=== PATIENT | female | born 1960 | race Caucasian/White ===

== ENCOUNTER 2024-03-06 18:39 | Emergency (ER) | payer OTHER, SELFPAY ==
[2024-03-06 18:42] VITALS: BP 132/59; PULSE 83; RESP 18; TEMP 36.6; O2SAT 94; BMI 24.5
--- NOTE | 2024-03-06 19:00 | EDS_ITS ---
HPI History of Present Illness Chief Complaint: Cold Sx Detail of Chief Complaint: Fever and chills and shortness of breath Informant: patient Narrative Narrative: Patient presents the emergency department with complaint of not feeling well for at least 5 days. She initially started with some fatigue. Now complaining of some chills and some shortness of breath. She does have history of COPD but does not wear home O2. Also complaining of some left upper back pain. She has had a mild cough. Denies urinary symptoms. She had some mild nausea but no vomiting. 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 [facility] Medical History (Updated 03/06/24 @ 21:[address] Maki Russo, DO) History of deviated nasal septum Hypertension COPD (chronic obstructive pulmonary disease) Home Medications ?Medication ?Instructions ?Recorded ?Last Taken ?Type albuterol sulfate 90 mcg/actuation inhalation 03/06/24 Unknown History aerosol inhaler budesonide-formoterol HFA 160 inhalation 03/06/24 Unknown History mcg-4.5 mcg/actuation aerosol inhaler (Symbicort) citalopram 20 mg tablet 20 mg PO DAILY 03/06/24 Unknown History ferrous sulfate 325 mg (65 mg 18 mg PO DAILY 03/06/24 Unknown History iron) tablet (iron) fluticasone 250 mcg-salmeterol 50 1 ea inhalation BID 03/06/24 Unknown History mcg/dose blistr powdr for inhalation (Wixela Inhub) levofloxacin 750 mg tablet 750 mg PO DAILY #6 tabs 03/06/24 Unknown Rx magnesium glycinate 100 mg (as 500 mg PO QDAY 03/06/24 Unknown History glycinate) tablet (Mag Glycinate) mecobalamin (vitamin B12) 1,000 1,000 mcg PO DAILY 03/06/24 Unknown History mcg lozenges olmesartan 20 mg tablet 5 mg PO DAILY 03/06/24 Unknown History tiotropium bromide 1.25 2 puff inhalation Q24H 03/06/24 Unknown History mcg/actuation mist for inhalation (Spiriva Respimat) Allergy/AdvReac Type Severity Reaction Status Date / Time bacitracin (From Neosporin Allergy Rash Verified 03/06/24 18:41 ([id number])) codeine Allergy Itching Verified 03/06/24 18:41 neomycin (From Neosporin Allergy Rash Verified 03/06/24 18:41 ([id number])) polymyxin B (From Neosporin Allergy Rash Verified 03/06/24 18:41 ([id number])) Surgical History (Updated 03/06/24 @ 19:29 by Zeenat Haywood) Hx of tubal ligation History of carpal tunnel repair Hx of tonsillectomy Social History Smoking Status: Current every day smoker tobacco type: e-cigarettes ROS ROS ED Review of Systems ROS Unobtainable: other Constitutional Constitutional ED: Reports chills, fever(s) and lethargy; Denies sweats or weigh t loss Eyes Eyes: Denies blurry vision, change in vision or diplopia ENT ENT ED: Denies rhinorrhea or sore throat Cardiovascular Cardiovascular: Denies chest pain, orthopnea or racing heartbeat Respiratory/Chest Respiratory/Chest: Reports cough, dyspnea and dyspnea on exertion; Denies orthopnea or sputum Gastrointestinal Gastrointestinal: Denies abdominal pain, diarrhea, nausea or vomiting Genitourinary Genitourinary ED: Denies dysuria, hematuria or urinary frequency Musculoskeletal Musculoskeletal: Reports myalgias; Denies arthralgias, back pain or neck pain Integumentary Denies abscess, Abrasions or rash Neurologic Neurologic: Reports headache(s); Denies weakness Psychiatric Psychiatric: Denies anxiety, depression or suicidal thoughts Endocrine Endocrinology: Denies polydipsia, polyphagia or polyuria Hematologic/Lymphatic Hematologic/Lymphatic: Denies easy bleeding, easy bruising or lymphadenopathy Allergic/Immunologic Allergic/Immunologic ED: Denies mouth swelling, tongue swelling or urticaria EXAM Physical Exam Const Vital Signs: 03/06/24 18:42 03/06/24 19:22 03/06/24 20:40 Temperature 98 F 98.9 F Temperature Source Temporal Oral Pulse Rate 83 64 Respiratory Rate 18 16 Respiratory Effort Normal Non-Labored Respiratory Pattern Normal Blood Pressure 132/59 H 109/65 Blood Pressure Mean 83 79 Pulse Ox 94 92 Oxygen Delivery Method Room Air Room Air Positive well nourished and well developed General Appearance ED: well developed and NAD HEENT Reports TM's clear and moist mucous membranes normocephalic and atraumatic; Negative for trauma or tenderness Tympanic Membrane ED: Yes TM's clear Eyes PERRL and EOMs intact bilaterally General Eye ED: Negative for pale conjunctiva or scleral icterus Neck no lymphadenopathy, supple and no JVD General: Negative for tenderness Chest Wall inspection of chest normal and palpation of chest normal Chest: Negative for tenderness Resp normal respiratory effort and clear to auscultation bilaterally Effort and Inspection: Negative for respiratory distress or pain with movement Auscultation: Negative for rhonchi, wheezes or diminished lung sounds Cardio regular rate, regular rhythm, S1 normal heart sound, S2 normal heart sound and no murmurs Peripheral Pulses: pulses 2+ throughout GI normal to inspection, nondistended, normoactive bowel sounds, soft to palpation, non-tender, non-distended and no masses Back/Spine no CVA tenderness and no thoracic nor lumbar tenderness Extremity normal to inspection General Extremety ED: Negative for edema General Extremity: Negative for edema Neuro oriented x3, CN's II-XII intact bilaterally, no sensory deficits noted and gait normal Sensorium / Orientation: awake, alert, oriented to person, oriented to place and oriented to time Motor Exam: strength 5/5 throughout and strength abnormal Psych mental status grossly normal Skin no rashes or lesions noted and no wounds MDM MDM MDM Narrative Medical decision making narrative: Patient presents with fever and chills and some dyspnea. History of COPD. In the differential would be pneumonia versus viral infection versus UTI or other infectious etiology. Patient had an IV line established. CBC with differential obtained showing a 12.4 with hemoglobin 13 and platelet count of 279. Chemistries unremarkable. Urinalysis was normal. COVID flu and RSV testing was negative. Chest x-ray obtained was read by myself as some chronic interstitial changes. Radiology felt there was interstitial thickening left upper lobe which may represent fibrotic change or atypical infection. Given patient's symptomatology and concerned about infection and then her elevated WBC count. Patient also with history of COPD. Will start on Levaquin and give first dose in the emergency department. Advised return if increasing shortness of breath or condition worsen anyway. Patient advised to follow-up with her primary care physician within next 5 to 7 days. Lab Data Attestation: I reviewed the patient's lab results. Labs: Laboratory Results - last 24 hr 03/06/24 03/06/24 19:05 19:15 WBC 12.4 H RBC 4.76 Hgb 13.1 Hct 41.4 MCV 87.0 MCH 27.5 MCHC 31.6 L RDW Std Deviation 58.2 H RDW Coeff of [place] 18.2 H Plt Count 279 MPV 9.2 Immature Gran % (Auto) 0.300 Neut % (Auto) 71.5 H Lymph % (Auto) 18.2 L [place] % (Auto) 8.3 Eos % (Auto) 1.1 Baso % (Auto) 0.6 Absolute Neuts (auto) 8.9 H Absolute Lymphs (auto) 2.25 Nucleated RBC % 0 Sodium 138 Potassium 3.4 L Chloride 104 Carbon Dioxide 27.0 Anion Gap 7 BUN 7 Creatinine 0.76 Estim Creat Clear Calc 62.41 Est GFR (MDRD) Af Amer 98 Est GFR (MDRD) Non-Af 81 BUN/Creatinine Ratio 9.2 L Glucose 121 H Calcium 9.0 Urine Color Yellow Urine Clarity Clear Urine pH 7.0 Ur Specific [place] 1.010 Urine Protein 15 H Urine Glucose (UA) Normal Urine Ketones Negative Urine Occult Blood Negative Urine Nitrite Negative Urine Bilirubin Negative Urine Urobilinogen Normal Ur Leukocyte Esterase Negative Urine RBC 0 SEEN Urine WBC 0 SEEN Ur Squamous Epith Cells 0 SEEN Urine Bacteria 0 SEEN Urine Mucus 0 SEEN Radiography Diagnostic Testing: Clinical Impression(s) from Imaging Studies Chest X-Ray 03/06/24 19:50 IMPRESSION: 1. Interstitial thickening involving left upper lobe. This may represent fibrotic change or atypical infection. Correlate clinically. 2. Old granulomatous disease. Electronically Signed: Kirk Watkins MD at 21:14 EDT , Discharge Plan Triage Chief Complaint: Cold Sx ED Provider: Maki Russo Dx/Rx/DC Orders Clinical Impression: Pneumonia Instructions: ED Pneumonia (Adult) Prescriptions: New levofloxacin 750 mg tablet 750 mg PO DAILY Qty: 6 0RF No Action olmesartan 20 mg tablet 5 mg PO DAILY citalopram 20 mg tablet 20 mg PO DAILY ferrous sulfate [iron] 325 mg (65 mg iron) tablet 18 mg PO DAILY mecobalamin (vitamin B12) 1,000 mcg lozenge 1,000 mcg PO DAILY Rx Instructions: allow to dissolve in mouth OR may chew lightly before swallowing Mag Glycinate 100 mg tablet 500 mg PO QDAY Spiriva Respimat 1.25 mcg/actuation mist 2 puff INHALATION Q24H fluticasone propion-salmeterol [Wixela Inhub] 250-50 mcg/dose blister with device 1 ea inhalation BID albuterol sulfate 90 mcg/actuation HFA aerosol inhaler inhalation budesonide-formoterol [Symbicort] 160-4.5 mcg/actuation HFA aerosol inhaler inhalation Primary Care Provider: WAYNE NAVARRO Referrals: WAYNE NAVARRO [Other] Activity Restrictions/Additional Instructions: Follow-up with your primary care physician within next 5 to 7 days. Print Language: [place] Island[place] Disposition Disposition: Home, Self Care
[2024-03-06 19:13] LABS: Absolute Lymphocyte Count 2.25 X10^3/uL (0.83-4.51); Absolute Neutrophil Count 8.9 X10^3/uL (2.0-7.7); Basophil# 0.07 X10^3/uL; Basophil% 0.6 % (0-1); Eosinophil# 0.14 X10^3/uL; Eosinophils% 1.1 % (0-5); Hematocrit 41.4 % (37-47); Hemoglobin 13.1 g/dL (12.0-15.0); Lymphocyte # 2.25 X10^3/ul (0.83-4.51); Lymphocyte % 18.2 % (19-41); Mean Corp Hgb Conc 31.6 g/dL (32-36); Mean Corpuscular Hgb 27.5 pg (27.0-32.0); Mean Platelet Vol. 9.2 fl (6.2-12.0); Monocyte# 1.03 X10^3/uL; Monocyte% 8.3 % (0-10); NRBC Flagged by Analyzer 0 % (0-5); Neutrophil # 8.85 X10^3/uL (2.7-7.7); Neutrophil % 71.5 % (47-70); Platelet Count 279 K/mm3 (150-450); RBC Distribution Width CV 18.2 % (11.6-14.6); RBC Distribution Width SD 58.2 fl (35.1-43.9); Red Blood Count 4.76 M/mm3 (4.2-5.4); White Blood Count 12.4 K/mm3 (4.4-11.0)
[2024-03-06 19:26] LABS: Anion Gap 7 (5-15); BUN 7 mg/dL (7-18); BUN/Creat Ratio 9.2 RATIO (10-20); Chloride 104 mmol/L (98-107); Creatinine, Serum 0.76 mg/dL (0.55-1.02); EST Glomerular Filtration Rate 81 mL/min (>60); Est Glom Filt Rate - Afr Amer 98 mL/min (>60); Estimated Creatinine Clearance 62.41 ml/min; Glucose 121 mg/dL (74-106); Potassium 3.4 mmol/L (3.5-5.1); Sodium Level 138 mmol/L (136-145)
[2024-03-06] MEDS: 0.9% Normal Saline (1000mL) 1,000 ML 1000 ML IV (19:31)
[2024-03-06 19:33] LABS: Bacteria 0 SEEN /hpf (None Seen); Mucous, Urine 0 SEEN /hpf (<or=2+); Red Blood Cells-Urine 0 SEEN /hpf (0-5); Squamous Epithelial Cells - UA 0 SEEN /hpf (5-10); White Blood Cells 0 SEEN /hpf (0-5)
[2024-03-06 19:40] LABS: Color, Urine Yellow (Yellow); Glucose, Dipstick Normal (Normal); Ketone-Dipstick Negative (Negative); Leukocyte Esterase-Dipstick Negative /ul (Negative); Nitrite-Dipstick Negative (Negative); Occult Blood-Urine Negative /ul (Negative); Protein-Dipstick 15 mg/dl (Negative); Urine Bilirubin Dipstick Negative (Negative); Urine Clarity Clear (Clear); Urine Urobilinogen Normal (Normal)
--- NOTE | 2024-03-06 19:50 | RAD_ITS ---
EXAM: XR CHEST, 2 VIEWS CLINICAL INDICATION: fever, left upper back pain TECHNIQUE: Frontal and lateral views of the chest. COMPARISON: No relevant prior studies available. FINDINGS: LUNGS AND PLEURAL SPACES: Small calcified granuloma suspected at the left lower lobe. Interstitial thickening involving left upper lobe. This may represent fibrotic change or atypical infection. Evidence of at least moderate bilateral centrilobular emphysema. No consolidation. No significant pleural effusion or pneumothorax. HEART: Unremarkable. Cardiac silhouette not enlarged. MEDIASTINUM: Central airways and mediastinal contour are unremarkable. BONES/JOINTS: Mild degenerative changes of the spine at multiple levels and the bilateral acromioclavicular joints. No acute fracture. SOFT TISSUES: Unremarkable. LYMPH NODES: Calcified lymph node in the left perihilar region measuring 2.9 cm is compatible with old granulomas disease. RAD/Chest PA and Lateral IMPRESSION: 1. Interstitial thickening involving left upper lobe. This may represent fibrotic change or atypical infection. Correlate clinically. 2. Old granulomatous disease. Electronically Signed: Kirk Watkins MD at 21:14 EDT ,
[2024-03-06 20:40] VITALS: BP 109/65; PULSE 64; RESP 16; TEMP 37.2; O2SAT 92
[2024-03-06 22:00] VITALS: RESP 18
[2024-03-06] MEDS: levoFLOXacin 750 MG Tablet PO (22:19)
== END 2024-03-06 22:26 | disposition home or self-care (01) ==
PROVIDERS: Emergency Provider Emergency Medicine; Visit Provider Emergency Medicine
DX: J18.9 Pneumonia, unspecified organism (principal); J44.9 Chronic obstructive pulmonary disease, unspecified; F17.290 Nicotine dependence, other tobacco product, uncomplicated
CPT/HCPCS: 71046; 80048; 81001; 85025; 87631; 96360; 99284; J7030; A4216